=== PATIENT | female | born 1985 | race Caucasian/White ===

== ENCOUNTER 2021-04-24 21:14 | Emergency (ER) | payer SELFPAY ==
[2021-04-24 21:20] VITALS: BP 158/90; PULSE 123; RESP 18; TEMP 36.6; O2SAT 98
--- NOTE | 2021-04-24 21:30 | ED.GENADUL_ITS ---
Discharge Plan Disposition Patient Disposition: HOME Condition: Stable Discharge Details Clinical Impression: Rash Primary Care Provider: None,None ED Provider: Gee Grullon Home Meds and New Rx's Prescriptions: New prednisone 20 mg tablet 60 mg PO DAILY 4 Days Qty: 12 RF: 0 Continued diphenhydramine HCl [Benadryl] 25 mg Capsule 25 mg PO PRN PRNRF: 0 Discharge Instructions Additional Instructions: use over the counter hydrocortisone cream as well and as needed benadryl, follow dosing instructions on packaging if you have difficulty breathing, difficulty swallowing liquids or feel more ill return to the emergency department if no improvement in a few days have your primary care provider evaluate the rash Medical Decision Making 36 yo female who denies chronic medical problems comes in with rash starting earlier today on the left temporal area that is itchy. Denies fevers, chills, dyspnea, difficulty breathing. Tried benadryl with minimal relief so came here. On the left temporal area of her head she has 3x3cm circular mildly erythematous mildly raised rash that blanches, nontender, not warm to touch. Normal oropharynx, no other swelling noted on exam, no other rashes, normal otoscope exam, no rash or swelling around the eyes. Seems most consistent with a contact dermatitis though she denies any new shampoos or known exposures. No findings to suggest cellulitis, nec fasc, shingles, sjs/ten. Will start her on prednisone and advised to f/u with pcp if no improvement this week and return precautions given Differential Diagnosis Differential Diagnosis: contact dermatitis, urticaria, cellulitis HPI General Mode of arrival: ambulatory . Date/Time Provider Initiated Documentation: 04/24/21 21:22 . Limitations to Documentation: no limitations . Information obtained by: patient . History of Present Illness 36 year old F presents to the emergency department with the chief complaint of rash, described as moderate, Patient started experiencing this day(s) (1) and it has been constant. No relieving factors improve symptom(s), No exacerbating factors reported . Patient notes denies chest pain and fever/chills. Patient did receive the following treatments prior to arrival, none Related Data Home Medications Medication Instructions Recorded Confirmed diphenhydramine HCl [Benadryl] 25 mg PO PRN PRN 04/24/21 04/24/21 prednisone 60 mg PO DAILY 4 Days #12 tab 04/24/21 Previous Rx's Medication Instructions Recorded prednisone 60 mg PO DAILY 4 Days #12 tab 04/24/21 Allergies Allergy/AdvReac Type Severity Reaction Status Date / Time No Known Drug Allergies Allergy Unverified 08/27/13 13:49 General Stated Complaint: FacialProb LEYDI: 4 Review of Systems All systems reviewed & are unremarkable except as noted in HPI and below Constitutional Constitutional: Denies chills, Denies fever(s) and Denies weakness Cardiovascular Cardiovascular: Denies chest pain and Denies dyspnea Respiratory Respiratory: Denies cough and Denies dyspnea Gastrointestinal Gastrointestinal: Denies abdominal pain, Denies nausea and Denies vomiting Musculoskeletal Musculoskeletal: Denies joint swelling Neurologic Neurologic: Denies weakness PFS All Active Problems (Updated 04/24/21 @ 21:31 by Gee Grullon MD) Post-dates (Acute 07/15/13) Shoulder dystocia, delivered, current hospitalization (Acute 07/15/13) Obstetric vaginal laceration, delivered, current hospitalization (Acute 07/15/13) Rash (Acute) Social History Smoking/Tobacco Use Status: Never Smoking risk assessment performed?: Yes Alcohol Intake: current Alcohol Intake frequency: holidays/special occasions only Substance use type: does not use Do you feel safe at home: Yes Do you feel safe in your relationship?: Yes Exam Const General: no acute distress Orientation: alert HENMT Head: normal to inspection Ears: external ears normal General nose exam: external nose normal Mouth: moist mucous membranes Eyes General: appearance normal, both eyes and all related structures Neck Neck: normal visual inspection Resp Effort & Inspection: normal respiratory effort and able to speak in complete sentences Cardio Rate: regular rate Skin General skin exam: elasticity normal Neuro General: patient alert and patient oriented x3 Extrem General: normal to inspection Psych Mental Status: mental status grossly normal Course Vital Signs Vital signs: Vital Signs Temperature 36.6 C 04/24/21 21:20 Pulse 123 H 04/24/21 21:20 Respiratory Rate 18 04/24/21 21:20 Blood Pressure 158/90 H 04/24/21 21:20 Pulse Oximetry 98 04/24/21 21:20 Temperature 36.6 C 04/24/21 21:20 Temperature Source Oral 04/24/21 21:20 Pulse 123 H 04/24/21 21:20 Respiratory Rate 18 04/24/21 21:20 Respiratory Effort 04/24/21 21:26 Blood Pressure 158/90 H 04/24/21 21:20 Blood Pressure Position Sitting 04/24/21 21:20 Pulse Oximetry 98 04/24/21 21:20 Oxygen Delivery Method Room Air 04/24/21 21:20 Oxygen Flow Rate 0 04/24/21 21:20
[2021-04-24] MEDS: predniSONE 20 MG TAB 60 MG PO (21:37)
== END 2021-04-24 21:36 | disposition home or self-care (01) ==
PROVIDERS: Emergency Provider Emergency Medicine
DX: R21 Rash and other nonspecific skin eruption (principal)
CPT/HCPCS: 99283; J7512

== ENCOUNTER 2025-03-24 06:31 | Inpatient (IN) | payer SELFPAY ==
[2025-03-24] VITALS (12 sets, daily range): BP systolic 107–166; BP diastolic 44–101; PULSE 83–135; RESP 12–24; TEMP 36.6–37; O2SAT 94–100
--- NOTE | 2025-03-24 06:45 | DI.CT_ITS ---
Exam(s) CT ABDOMEN PELVIS W EXAM: CT ABDOMEN PELVIS W CLINICAL HISTORY: R. sided abd pain and dysuria. TECHNIQUE: Imaging Protocol: Axial computed tomography images with coronal and sagittal reformatted images were created and reviewed CONTRAST MATERIAL: Intravenous: Omnipaque 350 Contrast volume: 75 ml Oral: no COMPARISON: US from 07/14/2013 FINDINGS: ABDOMEN and PELVIS: Lung Bases: No acute findings. Liver: Normal density. No suspicious mass. Gallbladder and biliary tract: No radiodense calculus. No wall thickening or pericholecystic fluid. No biliary dilation. Pancreas: Normal density. No abnormal calcifications or inflammatory process. No evidence of mass. Spleen: Normal. Kidneys: Normal size, contour and axis. No radiodense stones. No obstructive uropathy. No suspicious masses seen. Adrenal glands: No masses seen. Vasculature: Abdominal aorta non-dilated. Soft tissues: Unremarkable. Bladder: No gross wall thickening. No calculi.No focal mass. Bowel: No obstruction. No bowel wall thickening. Appendix normal. Peritoneal cavity: Moderate quantity of ascites noted around the liver and spleen as well as in the lower pelvis. The density appears higher than simple fluid density suggesting hemorrhage, particularly in at the level of the pelvis. No focal collection. No mesenteric inflammatory response. No free air. Bones: Unremarkable for age. Reproductive organs: The uterus and ovaries are not well delineated due to surrounding hemorrhage. There is a suggestion of a collapsing follicle versus mass of the left ovary. Pelvic ultrasound is recommended for further evaluation. Lymph nodes: No pathologically enlarged lymph nodes. IMPRESSION:: There is hemoperitoneum surrounding the uterus and ovaries which are not well delineated. There is a probable collapsing follicle of the left ovary. Findings suggest rupture of a hemorrhagic left ovarian cyst. Pelvic ultrasound is recommended. The preliminary [facility] report was reviewed. RADIATION DOSE DELIVERED: 565.14mGy.cm Total DLP DATA REPOSITORY: All CT scans at this facility are submitted to the National Radiology Data Registry (NRDR) Dose Index Registry (DIR) with the [employer] (A[employer]). RADIATION OPTIMIZATION: All CT scans at this facility use at least one of these dose optimization techniques: automated exposure control; mA and/or kV adjustment per patient size (includes targeted exams where dose is matched to clinical indication); or iterative reconstruction.
--- NOTE | 2025-03-24 06:58 | ED.GENADUL_ITS ---
Discharge Plan Disposition Patient Disposition: Admit to [facility] Condition: Stable Discharge Details Clinical Impression: Hemorrhagic cyst of left ovary, Hemoperitoneum Primary Care Provider: None,None ED Provider: Vaishnavi Monte Home Meds and New Rx's Prescriptions: No Action diphenhydramine HCl [Benadryl] 25 mg Capsule 25 mg PO PRN PRN HPI General Mode of arrival: ambulatory . Date/Time Provider Initiated Documentation: 03/24/25 06:48 . Limitations to Documentation: no limitations . Information obtained by: patient and old records reviewed . HPI Narrative: This is a 40-year-old female patient without significant past medical history presenting for evaluation of abdominal pain. The patient reports that yesterday she had a typical course of sex with her boyfriend, and gradually after that event started to develop some right sided abdominal pain. There was no specific moment or injury during intercourse that started the pain. The pain is associated with poor appetite, and pain with urination. She reports that the pain seems to radiate from the top of her abdomen down into the bottom and she has had some referred pain up to her right shoulder. She reports that she has not tried anything at home for the pain, has not had any associated diarrhea or constipation. Denies vaginal discharge or bleeding, prevents as her boyfriend has had a vasectomy. No back pain, chest pain, shortness of breath. Related Data Home Medications ?Medication ?Instructions ?Recorded ?Confirmed diphenhydramine HCl 25 mg capsule 25 mg PO PRN PRN 01/0503/24/25 (Benadryl) Held on 03/24/25. Instructions: Pt Stopped/Never Started Allergies Allergy/AdvReac Type Severity Reaction Status Date / Time No Known Drug Allergies Allergy Unknown Unknown Unverified 03/24/25 06:43 General Stated Complaint: Abd Prob LEYDI: 3 Exam Narrative Exam Narrative: Gen: Awake and alert, in no apparent distress HEENT: Non-icteric sclera Neck: Supple Lungs: No apparent respiratory distress, normal respiratory effort. Lung sounds clear and equal bilaterally without wheezes, rhonchi, rales CV: Appears well perfused, heart with regular rate and rhythm, strong distal pulses Abdomen: Non-distended, soft, tender in a generalized distribution without rigidity, rebound, or guarding. Tenderness reported to be worst in the right upper and lower quadrants, Santos sign negative MSK: Moves 4 extremities without apparent limitation in ROM. No peripheral edema Skin: Visualized skin without rashes, cyanosis. Neuro: Normal Gait, no obvious focal deficits or facial asymmetry. Speaks in full, clear sentences. Psych: Appropriate for situation. Course Vital Signs Vital signs: Vital Signs Temperature 37 C 03/24/25 06:38 Pulse 133 H 03/24/25 06:38 Respiratory Rate 24 03/24/25 06:38 Blood Pressure 149/73 H 03/24/25 06:38 Pulse Oximetry 100 03/24/25 06:38 Temperature 37 C 03/24/25 06:44 Temperature Source Temporal Artery Scan 03/24/25 06:38 Pulse 110 H 03/24/25 06:44 Respiratory Rate 19 03/24/25 06:44 Blood Pressure 166/101 H 03/24/25 06:44 Blood Pressure Position Sitting 03/24/25 06:44 Pulse Oximetry 98 03/24/25 06:44 Oxygen Delivery Method Room Air 03/24/25 06:44 Oxygen Flow Rate 0 03/24/25 06:38 Pain Level 9 03/24/25 06:44 Lab/Test Results Lab/Test Results: POC- Test(urine) Negative Medical Decision Making This is a 40-year-old female patient presenting for evaluation of abdominal pain. My differential includes, but is not limited to, gastritis/PUD, gastroenteritis, pancreatitis, cholecystitis and gallbladder pathology, hepatitis, appendicitis, diverticulitis, small bowel obstruction. Considered urinary pathology including UTI, nephrolithiasis. Considered mesenteric ischemia, aortic pathology, though this is less concerning based on the patient's history and physical exam. Considered ectopic , PID/TOA, ovarian cyst, ovarian torsion, though the patient is reassuringly without vaginal symptoms. I certainly considered Jensen-Dany Bandar syndrome in this patient with reported right shoulder pain. A [id number] test was negative, we will provide the patient with a liter of IV fluids for her mild tachycardia and poor p.o. intake, as well as Tylenol and Dilaudid for initial symptomatic management. Will obtain labs to include CBC, CMP, magnesium, lipase, and urinalysis. I will obtain a CT abdomen pelvis to better characterize the etiology of her symptoms. - I independently interpreted the laboratory studies, which show no significant leukocytosis or thrombocytopenia, though the patient does have an anemia to 10.9. She does not have any recent laboratory studies available to compare to. The chemistry panel is without evidence of electrolyte abnormality, kidney dysfunction, or liver injury. Lipase is low, urinalysis with some ketones, no infectious findings or hematuria. -I reviewed the patient's CT scan and discussed it with the radiologist. It does show evidence of free fluid in both the hepato and splenic recesses, and pelvis, with a large heterogenous cyst of the left ovary concerning for hemorrhagic cyst. Ultrasound obtained, does not show ovarian torsion. test was negative and I am not concerned for ruptured ectopic, but given the amount of hemoperitoneum and the patient's ongoing discomfort I reached out to Dr. Marquez with [facility] who is graciously accept this patient for admission. Patient remained hemodynamically appropriate though intermittently tachycardic, and did require a dose of nausea medication for dry heaving. The patient was transferred from our department without incident. Vaishnavi Monte MD [facility] All Active Problems (Updated 03/24/25 @ 11:42 by Vaishnavi Monte MD) Hemoperitoneum (Acute) Hemorrhagic cyst of left ovary (Acute) Obstetric vaginal laceration, delivered, current hospitalization (Acute 07/15/13) Shoulder dystocia, delivered, current hospitalization (Acute 07/15/13) Post-dates (Acute 07/15/13) Social History Smoking/Tobacco Use Status: Never Smoking risk assessment performed?: Yes Alcohol Intake: current Alcohol Intake frequency: 0-2 drinks per day Alcohol type: hard liquor Drug use: Never Substance use type: does not use Housing: house Do you feel safe at home: Yes Do you feel safe in your relationship?: Yes PAWSS Have you Been Recently Intoxicated or Drunk Within the Last 30 days?: No Have you Ever Experienced Previous Episodes of Alcohol Withdrawal?: No Have you ever Experienced Withdrawal Seizures?: No Have you ever Experienced Delirium Tremens(DT)s?: No Have you ever undergone Alcohol Rehabilitation Treatment (i.e, inpt ot outpatient treatment programs)?: No Have you ever Experienced Blackouts?: No Have you ever Combined Alcohol with other Downers within the last 90 days?: No Have you ever Combined Alcohol with any other Substance of Abuse during the last 90 days?: No Positive Blood Alcohol level on Presentation? [PCS.BAL]: No Evidence of Increased Autonomic Activity (i.e. HR>120, tremor, sweating, agitation, nausea)?: No Result: 0
[2025-03-24 07:11] LABS: Glucose Negative (Negative)
[2025-03-24 07:14] LABS: Abs Immature Grans 0.02 10^3/uL (0.0-0.06); HCT 32.6 % (36.0-46.0); HGB 10.9 g/dL (11.2-15.7); Immature Grans % 0.4 %; MCH 26.8 pg (27.0-33.0); MCHC 33.4 % (32.0-36.0); MCV 80 fL (80-95); MPV 9.8 fL (8.0-11.0); Platelet Count 179 10^3/uL (130-400); RBC 4.06 10^6/uL (3.93-5.22); RDW 14.3 % (11.7-14.6); RDW-SD 41.8 fL; WBC 5.21 10^3/uL (4.4-10.8)
[2025-03-24] MEDS: ACETAMINOPHEN 1,000 MG/100 ML BAG 400 MG IVPB (07:16)
[2025-03-24] MEDS: HYDROmorphone 2 MG/ML SYR 0.5 MG IVP (07:16)
[2025-03-24] MEDS: Lactated Ringers 1,000 ML 1000 ML IV (07:17)
[2025-03-24 07:30] LABS: Lipase 24 U/L (<53); Magnesium 2.0 mg/dL (1.6-2.6)
[2025-03-24] MEDS: Normal Saline Flush 10 ML SYR IVP (07:31)
[2025-03-24] MEDS: Normal Saline - Diluent 50 ML VIAL IJ (07:31)
[2025-03-24 07:32] LABS: ALT 20 U/L (10-49); AST 18 U/L (<34); Albumin 4.2 g/dL (3.2-5.0); Alkaline Phosphatase 50 U/L (46-116); Anion Gap 8.9 mmol/L (3-11); BUN 11 mg/dL (9-23); Bilirubin, Total 1.10 mg/dL (0.2-1.2); CO2 26.1 mmol/L (20.0-31.0); Calcium 8.7 mg/dL (8.3-10.6); Chloride 104 mmol/L (98-107); Glucose 117 mg/dL (74-106); Potassium 3.6 mmol/L (3.5-5.1); Sodium 139 mmol/L (136-145); Total Protein 6.9 g/dL (5.7-8.2)
[2025-03-24] MEDS: Omnipaque 350 MG/ML 500 ML BTL-Imaging package IJ (07:32)
[2025-03-24] MEDS: HYDROmorphone 2 MG/ML SYR 1 MG IVP (08:35)
--- NOTE | 2025-03-24 08:45 | DI.US_ITS ---
Exam(s) US PELVIS TRANSVAGINAL EXAM: US PELVIS TRANSVAGINAL CLINICAL HISTORY: L. adnexal mass and ascites with abd pain TECHNIQUE: Transabdominal and transvaginal imaging was performed using standard protocol. COMPARISON: CT CT ABDOMEN PELVIS W from 03/24/2025 FINDINGS: UTERUS: Anteverted. 0.2 x 5.0 x 5.6 cm Endometrium: 8 mm . Homogeneous. Myometrium: Unremarkable. Cervix: Nabothian cysts. OVARIES: Right: Not visualized Left: Cyst or mass: The left ovary appears enlarged, measuring 7.1 x 6.7 x 5.5 cm and shows areas of mixed echogenicity. There is no evidence of torsion. DOPPLER: Color: Blood flow to the left ovary was identified. No hyperemia. CUL-DE-SAC: Free fluid: Moderate quantity of hemorrhagic material is noted in the pelvis, around the uterus. IMPRESSION: 1. Normal-appearing uterus with endometrial stripe within normal limits. 2. Enlarged left ovary with areas of mixed echogenicity. The findings could represent a mass. No evidence of torsion. Gullet Slitter consult and follow-up ultrasound recommended. 3. Findings discussed with Dr. Montiel, ER provider. DATA REPOSITORY:
--- NOTE | 2025-03-24 08:46 | DI.[facility]_ITS ---
PROCEDURE INFORMATION: Exam: CT Abdomen And Pelvis With Contrast Exam date and time: 03/24/2025 7:30 AM Age: 40 years old Clinical indication: Abdominal pain; Localized; Right; T sided abd pain/dysuria TECHNIQUE: Imaging protocol: Computed tomography of the abdomen and pelvis with contrast. Radiation optimization: All CT scans at this facility use at least one of these dose optimization techniques: automated exposure control; mA and/or kV adjustment per patient size (includes targeted exams where dose is matched to clinical indication); or iterative reconstruction. Contrast material: OMNI 350; Contrast volume: 75 ml; Contrast route: INTRAVENOUS (IV); COMPARISON: No relevant prior studies available. FINDINGS: Liver: Normal. No mass. Gallbladder and biliary ducts: Normal. No calcified stones. No ductal dilation. Pancreas: Normal. No ductal dilation. Spleen: Normal. No splenomegaly. Adrenal glands: Normal. No mass. Kidneys and ureters: Normal. No hydronephrosis. Stomach and bowel: Unremarkable. No obstruction. No mucosal thickening. Appendix: No evidence of appendicitis. Intraperitoneal space: Ascites. Vasculature: Unremarkable. No abdominal aortic aneurysm. Lymph nodes: Unremarkable. No enlarged lymph nodes. Urinary bladder: Unremarkable as visualized. Reproductive: A left adnexal heterogeneous masslike opacity likely an enlarged left ovary. Ultrasound examination of the pelvis is recommended for further evaluation. Bulky uterus with the endometrial thickening likely on the basis of patient's menstrual cycle. Bones/joints: Unremarkable. No acute fracture. Soft tissues: Unremarkable. IMPRESSION: 1. Ascites. 2. Left adnexal masslike opacity as detailed above for which further evaluation with ultrasound examination of the pelvis is recommended. Dictated and Authenticated by: Jesus Alberto Vang MD. Orderin [facility]. Davy Riggins MD
[2025-03-24] MEDS: Ondansetron 4 MG/2 ML VIAL IVP ×2 (11:23→17:01)
[2025-03-24 13:08] LABS: Abs Immature Grans 0.03 10^3/uL (0.0-0.06); HCT 31.1 % (36.0-46.0); HGB 10.2 g/dL (11.2-15.7); Immature Grans % 0.5 %; MCH 26.4 pg (27.0-33.0); MCHC 32.8 % (32.0-36.0); MCV 81 fL (80-95); MPV 9.9 fL (8.0-11.0); Platelet Count 172 10^3/uL (130-400); RBC 3.86 10^6/uL (3.93-5.22); RDW 14.3 % (11.7-14.6); RDW-SD 41.7 fL; WBC 5.66 10^3/uL (4.4-10.8)
--- NOTE | 2025-03-24 13:23 | W.PM.HP.N ---
Date of service: 03/24/25 Time of Service: 13:00 Assessment and Plan Assessment and plan (1) Hemoperitoneum: Status: Acute Assessment and plan: I suspect that the hemoperitoneum is most likely due to a ruptured hemorrhagic cyst due to the onset after intercourse. At this point she is stable without significant pain or current e/o ongoing bleeding. We will monitor her through out the day for continued stability via CBC and vitals. (2) Hemorrhagic cyst of left ovary: Status: Acute Assessment and plan: Likely hemorrhagic cyst on the left ovary but will plan on follow up. History of Present Illness History of Present Illness Chief Complaint: hemoperitoneum Narrative: Pt is a 40yo P who had intercourse last evening and shortly afterwards, around 9:30pm she started to develop some pelvic pain. However, she was able to sleep as long as she laid on her left side. When she woke up this am the pain was still there and was more generalized. Therefore, she came to the ED for evaluation. She had a CT scan followed by ultrasound which showed evidence of blood in the pelvis with a 7cm left hemorrhagic ovarian cyst, no e/o torsion. She did recieve dilaudid for pain management twice in the ED with the last dose before 10am (>3hrs prior to arrival on the floor). She had good management of her pain with this. She did have some nausea and vomiting which were helped with zofran. She denies other sick contacts. She had some episodes of tachycardia while in the ED but that resolved prior to arrival on the floor. Her partner has a vasectomy and she denies any other partners. She has not seen a document management consultant since the of her last child in 2013. Review of Systems All systems reviewed & are unremarkable except as noted in HPI and below Constitutional Constitutional: Denies chills and Denies fever(s) Gastrointestinal Comments: +nausea/vomiting Genitourinary Comments: No bleeding PFSH All Active Problems (Updated 03/25/25 @ 00:04 by TWIN BARRIOS) Vomiting (Acute) Hemoperitoneum (Acute) Hemorrhagic cyst of left ovary (Acute) Social History Smoking/Tobacco Use Status: Never Smoking risk assessment performed?: Yes Alcohol Intake: current Alcohol Intake frequency: 0-2 drinks per day Alcohol type: hard liquor Drug use: Never Substance use type: does not use Housing: house Do you feel safe at home: Yes Do you feel safe in your relationship?: Yes Meds Allergies and Home Medications Allergies Allergy/AdvReac Type Severity Reaction Status Date / Time No Known Drug Allergies Allergy Unknown Unknown Unverified 03/24/25 06:43 Home Medications ?Medication ?Instructions ?Recorded ?Confirmed ?Type diphenhydramine HCl 25 mg capsule 25 mg PO PRN PRN 04/24/21 03/24/25 History (Benadryl) Held on 03/24/25. Instructions: Pt Stopped/Never Started Exam GI Other: Abdomen with mild tenderness to palpation, slightly more significant in the lower pelvis. No rebound or tenderness. Extrem Other: No edema. No calf tenderness. Psych Mental Status: mental status grossly normal Speech and Movement: speech and movement normal Mood: congruent mood Affect: normal affect Results Labs 03/24/25 17:38 03/24/25 07:08 Labs: Laboratory Results - last 24 hr 03/24/25 03/24/25 03/24/25 06:45 07:08 13:00 WBC 5.21 5.66 RBC 4.06 3.86 L Hgb 10.9 L 10.2 L Hct 32.6 L 31.1 L MCV 80 81 MCH 26.8 L 26.4 L MCHC 33.4 32.8 RDW 14.3 14.3 Plt Count 179 172 MPV 9.8 9.9 Immature Gran % 0.4 0.5 Neutrophils % 70.7 86.1 Lymphocytes % 20.0 9.5 Monocytes % 8.3 3.5 Eosinophils % 0.2 0.0 Basophils % 0.4 0.4 Nucleated RBC % 0.0 0.0 Absolute Neutrophils 3.69 4.87 Absolute Lymphocytes 1.04 L 0.54 L Absolute Monocytes 0.43 0.20 Absolute Eosinophils 0.01 0.00 Absolute Basophils 0.02 0.02 Sodium 139 Potassium 3.6 Chloride 104 Carbon Dioxide 26.1 Anion Gap 8.9 BUN 11 Creatinine 0.82 Est GFR (CKD-EPI 2020) 76.43 Glucose 117 H Calcium 8.7 Magnesium 2.0 Total Bilirubin 1.10 AST 18 ALT 20 Alkaline Phosphatase 50 Total Protein 6.9 Albumin 4.2 Lipase 24 Urine Color Yellow Urine Clarity Clear Urine pH 5.5 Ur Specific [place] >= 1.030 H Urine Protein Negative Urine Ketones 15 H Urine Blood Negative Urine Nitrite Negative Urine Bilirubin Small H Urine Urobilinogen 0.2 Ur Leukocyte Esterase Negative Urine Glucose Negative Last Vital Signs Temp 97.9 F 03/24/25 12:39 Pulse 83 03/24/25 12:39 Resp 12 03/24/25 12:39 BP 124/68 03/24/25 12:39 Pulse Ox 100 03/24/25 12:39 VTE Prohylaxis Risk Level: Low Risk Contraindications: None Prophylaxis: Patient ambulatory PAWSS Have you Been Recently Intoxicated or Drunk Within the Last 30 days?: No Have you Ever Experienced Previous Episodes of Alcohol Withdrawal?: No Have you ever Experienced Withdrawal Seizures?: No Have you ever Experienced Delirium Tremens(DT)s?: No Have you ever undergone Alcohol Rehabilitation Treatment (i.e, inpt ot outpatient treatment programs)?: No Have you ever Experienced Blackouts?: No Have you ever Combined Alcohol with other Downers within the last 90 days?: No Have you ever Combined Alcohol with any other Substance of Abuse during the last 90 days?: No Positive Blood Alcohol level on Presentation? [PCS.BAL]: No Evidence of Increased Autonomic Activity (i.e. HR>120, tremor, sweating, agitation, nausea)?: No Result: 0 Time Spent Time spent with Patient: <40 minutes Time was spent: preparing to see the patient(eg.review tests), obtaining and/or reviewing separately otained hiistory, ordering medications,tests, procedures, referring, communicating with other health healthcare analyst, indepentently interpreting results and counseling the patient
[2025-03-24 17:48] LABS: Abs Immature Grans 0.03 10^3/uL (0.0-0.06); HCT 30.7 % (36.0-46.0); HGB 10.0 g/dL (11.2-15.7); Immature Grans % 0.6 %; MCH 26.3 pg (27.0-33.0); MCHC 32.6 % (32.0-36.0); MCV 81 fL (80-95); MPV 9.8 fL (8.0-11.0); Platelet Count 182 10^3/uL (130-400); RBC 3.80 10^6/uL (3.93-5.22); RDW 14.4 % (11.7-14.6); RDW-SD 41.8 fL; WBC 5.08 10^3/uL (4.4-10.8)
--- NOTE | 2025-03-24 18:41 | PGE_ITS ---
Date of Service Date of service: 03/24/25 Time of Service: 18:42 Assessment and Plan Assessment and plan (1) Hemoperitoneum: Status: Acute Assessment and plan: 40yo with hemoperitoneum likely secondary to a ruptured hemorrhagic cyst. Currently stable. Pain significantly decreased. Hb dropped from 10.9 at 7am to 10.0 at 17:30. Her vital signs have remained stable throughout the afternoon. She was given the option for observation overnight vs d/c to home and she prefers to go home now. (2) Vomiting: Status: Acute Assessment and plan: Uncertain if this is secondary to hemoperitoneum vs a separate GI bug. She was encouraged to stay hydrated and take it easy at home. (3) Hemorrhagic cyst of left ovary: Status: Acute Assessment and plan: She agrees to f/u in the clinic tomorrow afternoon for a pelvic exam and pap smear and to make a plan for f/u ultrasound of the left ovary. Subjective Subjective Interval history since last seen: Pt denies significant pain. She has required no further pain medication since this am. She is using a heating pad for further comfort. She did have 2 episode of vomiting this afternoon but is feeling better s/p zofran. She ate a little bit prior to the last episode. She feels well currently. Exam Const General: cooperative, healthy appearing and no acute distress [facility] Head: normocephalic and atraumatic Ears: hearing grossly normal bilaterally Resp Effort & Inspection: normal respiratory effort and able to speak in complete sentences GI Other: Mildly tender to palpation. Neuro General: patient alert and patient awake Psych Appearance: grossly normal Mental Status: mental status grossly normal Speech and Movement: speech and movement normal Affect: normal affect Attitude: cooperative Thought Process: normal Thought Content: normal Objective Last Vital Signs Temp 97.9 F 03/24/25 12:39 Pulse 83 03/24/25 12:39 Resp 12 03/24/25 12:39 BP 124/68 03/24/25 12:39 Pulse Ox 100 03/24/25 12:39 Laboratory Results - last 24 hr 03/24/25 03/24/25 03/24/25 06:45 07:08 13:00 WBC 5.21 5.66 RBC 4.06 3.86 L Hgb 10.9 L 10.2 L Hct 32.6 L 31.1 L MCV 80 81 MCH 26.8 L 26.4 L MCHC 33.4 32.8 RDW 14.3 14.3 Plt Count 179 172 MPV 9.8 9.9 Immature Gran % 0.4 0.5 Neutrophils % 70.7 86.1 Lymphocytes % 20.0 9.5 Monocytes % 8.3 3.5 Eosinophils % 0.2 0.0 Basophils % 0.4 0.4 Nucleated RBC % 0.0 0.0 Absolute Neutrophils 3.69 4.87 Absolute Lymphocytes 1.04 L 0.54 L Absolute Monocytes 0.43 0.20 Absolute Eosinophils 0.01 0.00 Absolute Basophils 0.02 0.02 Sodium 139 Potassium 3.6 Chloride 104 Carbon Dioxide 26.1 Anion Gap 8.9 BUN 11 Creatinine 0.82 Est GFR (CKD-EPI 2020) 76.43 Glucose 117 H Calcium 8.7 Magnesium 2.0 Total Bilirubin 1.10 AST 18 ALT 20 Alkaline Phosphatase 50 Total Protein 6.9 Albumin 4.2 Lipase 24 Urine Color Yellow Urine Clarity Clear Urine pH 5.5 Ur Specific [place] >= 1.030 H Urine Protein Negative Urine Ketones 15 H Urine Blood Negative Urine Nitrite Negative Urine Bilirubin Small H Urine Urobilinogen 0.2 Ur Leukocyte Esterase Negative Urine Glucose Negative 03/24/25 17:38 WBC 5.08 RBC 3.80 L Hgb 10.0 L Hct 30.7 L MCV 81 MCH 26.3 L MCHC 32.6 RDW 14.4 Plt Count 182 MPV 9.8 Immature Gran % 0.6 Neutrophils % 83.5 Lymphocytes % 10.6 Monocytes % 4.9 Eosinophils % 0.0 Basophils % 0.4 Nucleated RBC % 0.0 Absolute Neutrophils 4.24 Absolute Lymphocytes 0.54 L Absolute Monocytes 0.25 Absolute Eosinophils 0.00 Absolute Basophils 0.02 Sodium Potassium Chloride Carbon Dioxide Anion Gap BUN Creatinine Est GFR (CKD-EPI 2020) Glucose Calcium Magnesium Total Bilirubin AST ALT Alkaline Phosphatase Total Protein Albumin Lipase Urine Color Urine Clarity Urine pH Ur Specific [place] Urine Protein Urine Ketones Urine Blood Urine Nitrite Urine Bilirubin Urine Urobilinogen Ur Leukocyte Esterase Urine Glucose PAWSS Have you Been Recently Intoxicated or Drunk Within the Last 30 days?: No Have you Ever Experienced Previous Episodes of Alcohol Withdrawal?: No Have you ever Experienced Withdrawal Seizures?: No Have you ever Experienced Delirium Tremens(DT)s?: No Have you ever undergone Alcohol Rehabilitation Treatment (i.e, inpt ot outpatient treatment programs)?: No Have you ever Experienced Blackouts?: No Have you ever Combined Alcohol with other Downers within the last 90 days?: No Have you ever Combined Alcohol with any other Substance of Abuse during the last 90 days?: No Positive Blood Alcohol level on Presentation? [PCS.BAL]: No Evidence of Increased Autonomic Activity (i.e. HR>120, tremor, sweating, agitation, nausea)?: No Result: 0 VTE Prohylaxis Risk Level: Low Risk Contraindications: None Prophylaxis: Patient ambulatory Time Spent with Patient Time Spent with Patient: <25 minutes Time was spent: preparing to see the patient(eg.review tests), obtaining and/or reviewing separately otained hiistory, ordering medications,tests, procedures, indepentently interpreting results and counseling the patient
--- NOTE | 2025-03-24 18:55 | DSE_ITS ---
Date of service: 03/24/25 Time of Service: 18:55 DS: Diagnosis Discharge Diagnosis (1) Hemoperitoneum: Status: Acute Asessment and Plan: 40yo with hemoperitoneum likely secondary to a ruptured hemorrhagic cyst. Currently stable. Pain significantly decreased. Hb dropped from 10.9 at 7am to 10.0 at 17:30. Her vital signs have remained stable throughout the afternoon. She was given the option for observation overnight vs d/c to home and she prefers to go home now. (2) Vomiting: Status: Acute (3) Hemorrhagic cyst of left ovary: Status: Acute Asessment and Plan: F/u in clinic tomorrow. Discharge Plan Disposition Patient Disposition: Home Condition: Improving Discharge Details Reason For Visit: Hemorrhagic Left Ovarian Cyst w/ Hemoperitoneum Admit Date/Time: 03/24/25 11:29 Admit Provider: Eliz Marquez Attending Provider: Eliz Marquez Primary Care Provider: None,None Hospital Course Hospital Course: 40yo admitted with hemoperitoneum likely secondary to a ruptured hemorrhagic cyst. Currently stable. Pain significantly decreased. Hb dropped from 10.9 at 7am to 10.0 at 17:30. Her vital signs have remained stable throughout the afternoon. She requests d/c to home. Recommendations for Follow Up Recommended tests to be ordered by follow up provider: Pap smear Home Meds and New Rx's Prescriptions: No Action diphenhydramine HCl [Benadryl] 25 mg Capsule 25 mg PO PRN PRN Discharge Instructions Stand Alone Forms: Portal Information Activity:: Activity as Tolerated Equipment/Supplies:: No Equipment Needed Diet:: As Tolerated Discharge Orders Discharge Orders: Discharge Order (Routine); Ordered 03/24/25 Ordered By: Eliz Marquez DS: Summary Time Spent with Patient providing and/or coordinating discharge services: Less than 30 minutes Status at Discharge Functional status at discharge: independent ambulation Overall status at discharge: patient is progressing back to baseline Mental Status: mental status grossly normal Speech and Movement: speech and movement normal Mood: congruent mood Affect: normal affect Exam Psych Mental Status: mental status grossly normal Speech and Movement: speech and movement normal Mood: congruent mood Affect: normal affect DS: Data Vitals/I&O Vitals and I&O: Vital Signs Temperature 97.9 F 03/24/25 12:39 Temperature Source Temporal Artery Scan 03/24/25 12:39 Pulse 83 12/09/25 12:39 Pulse 113 H 03/24/25 09:01 Respiratory Rate 12 03/24/25 12:39 Blood Pressure 124/68 03/24/25 12:39 Blood Pressure Mean 86 03/24/25 12:39 Blood Pressure Position Sitting 03/24/25 06:44 Pulse Oximetry 100 03/24/25 12:39 Oxygen Delivery Method Room Air 03/24/25 12:39 Oxygen Flow Rate 0 03/24/25 12:39 Pain Level 9 03/24/25 08:35 Intake & Output 03/23/25 03/24/25 03/24/25 23:59 11:59 23:59 Intake Total 1110 / 1110 Output Total 600 / 600 Balance 1110 / 510 -600 / 510 Weight 195 lb Intake: IV 1110 / 1110 Output: Urine 300 / 300 Emesis 300 / 300 Data Completed and Pending Pending Labs at Discharge: 03/24/25 03/24/25 03/24/25 06:45 07:08 13:00 WBC 5.21 5.66 RBC 4.06 3.86 L Hgb 10.9 L 10.2 L Hct 32.6 L 31.1 L MCV 80 81 MCH 26.8 L 26.4 L MCHC 33.4 32.8 RDW 14.3 14.3 Plt Count 179 172 MPV 9.8 9.9 Immature Gran % 0.4 0.5 Neutrophils % 70.7 86.1 Lymphocytes % 20.0 9.5 Monocytes % 8.3 3.5 Eosinophils % 0.2 0.0 Basophils % 0.4 0.4 Nucleated RBC % 0.0 0.0 Absolute Neutrophils 3.69 4.87 Absolute Lymphocytes 1.04 L 0.54 L Absolute Monocytes 0.43 0.20 Absolute Eosinophils 0.01 0.00 Absolute Basophils 0.02 0.02 Sodium 139 Potassium 3.6 Chloride 104 Carbon Dioxide 26.1 Anion Gap 8.9 BUN 11 Creatinine 0.82 Est GFR (CKD-EPI 2020) 76.43 Glucose 117 H Calcium 8.7 Magnesium 2.0 Total Bilirubin 1.10 AST 18 ALT 20 Alkaline Phosphatase 50 Total Protein 6.9 Albumin 4.2 Lipase 24 Urine Color Yellow Urine Clarity Clear Urine pH 5.5 Ur Specific [place] >= 1.030 H Urine Protein Negative Urine Ketones 15 H Urine Blood Negative Urine Nitrite Negative Urine Bilirubin Small H Urine Urobilinogen 0.2 Ur Leukocyte Esterase Negative Urine Glucose Negative 03/24/25 17:38 WBC 5.08 RBC 3.80 L Hgb 10.0 L Hct 30.7 L MCV 81 MCH 26.3 L MCHC 32.6 RDW 14.4 Plt Count 182 MPV 9.8 Immature Gran % 0.6 Neutrophils % 83.5 Lymphocytes % 10.6 Monocytes % 4.9 Eosinophils % 0.0 Basophils % 0.4 Nucleated RBC % 0.0 Absolute Neutrophils 4.24 Absolute Lymphocytes 0.54 L Absolute Monocytes 0.25 Absolute Eosinophils 0.00 Absolute Basophils 0.02 Sodium Potassium Chloride Carbon Dioxide Anion Gap BUN Creatinine Est GFR (CKD-EPI 2020) Glucose Calcium Magnesium Total Bilirubin AST ALT Alkaline Phosphatase Total Protein Albumin Lipase Urine Color Urine Clarity Urine pH Ur Specific [place] Urine Protein Urine Ketones Urine Blood Urine Nitrite Urine Bilirubin Urine Urobilinogen Ur Leukocyte Esterase Urine Glucose PFSH All Active Problems (Updated 03/24/25 @ 18:52 by Eliz Marquez MD) Vomiting (Acute) Hemoperitoneum (Acute) Hemorrhagic cyst of left ovary (Acute) Social History Smoking/Tobacco Use Status: Never Smoking risk assessment performed?: Yes Alcohol Intake: current Alcohol Intake frequency: 0-2 drinks per day Alcohol type: hard liquor Drug use: Never Substance use type: does not use Housing: house Do you feel safe at home: Yes Do you feel safe in your relationship?: Yes Time Spent with Patient Time Spent with Patient: <45 minutes Time was spent: preparing to see the patient(eg.review tests), obtaining and/or [facility], ordering medications,tests, procedures, indepentently interpreting results and counseling the patient
== END 2025-03-24 19:08 | disposition home or self-care (01) | DRG 760 ==
LOC: ER 12:14 → OBS 12:29
PROVIDERS: Emergency Medicine; Admitting Provider Obstetrics & Gynecology; Emergency Provider Emergency Medicine; Visit Provider Obstetrics & Gynecology
DX: N83.202 Unspecified ovarian cyst, left side (principal); K66.1 Hemoperitoneum; R11.10 Vomiting, unspecified
CPT/HCPCS: 80053; 81025; 83690; 96361; 96374; 96375; 99285; 74177; 76830; 76856; 81003; 83735; 85025; J0131; J1171; J2405

== ENCOUNTER 2025-03-25 14:36 | Outpatient (REF) | payer SELFPAY ==
--- NOTE | 2025-03-25 14:45 | PAPFT_PTH ---
PATIENT: Mary Kay Torre LOC: [facility] U#:[id number] AGE/SX: 40/F ROOM: RE03/25/[address]: Elzi Marquez MD : [id number] BED: DIS: 03/25/2025 SPEC #: [id number] RECD: 03/25/25 18:07 STATUS: LUIS DANIEL WALKER #: [id number] FRED: 03/25/25 14:[address]: Eliz Marquez DEPT: [facility] Cytology RECD BY: Jaycee Gipson ENTERED: 03/25/25 18:07 SP TYPE: PAPFT SHAILESH DR: None Tissues: 1 - CX/ENDOCX FOR PAP SMEARS Procedures: PAP THIN PREP/UVM Screening HPV DNA PROBE Comments: [id number] (HPV 16 & 18/45)
== END 2025-03-25 14:37 | disposition home or self-care (01) ==
LOC: LBN 14:36
PROVIDERS: Visit Provider Obstetrics & Gynecology
DX: Z12.4 Encounter for screening for malignant neoplasm of cervix (principal)
CPT/HCPCS: 88142; 87624